=== PATIENT | female | born 1950 | race Caucasian/White ===

== ENCOUNTER 2016-10-29 15:41 | Emergency (ER) | payer MEDICARE ==
[~2016-10-29] VITALS: Ht 162.6 cm; Wt 71.2 kg
[~2016-10-29 15:41] MED LIST: ALBU18HF INH; AZIT250T89 PO; CEFD300C37 PO; CYCL-259 PO; DIPH25CA61 PO; IPRA3AMP NPPB; OXYC-229 PO; PRED20TA PO; PREG300C PO
[2016-10-29 16:18] VITALS: BP 98/63
== END 2016-10-29 17:53 | disposition home or self-care (01) ==
LOC: ED 17:47
DX: S83.411A Sprain of medial collateral ligament of right knee, initial encounter (principal); J44.9 Chronic obstructive pulmonary disease, unspecified; X58.XXXA Exposure to other specified factors, initial encounter; Y93.89 Activity, other specified; Y92.89 Other specified places as the place of occurrence of the external cause; Y99.9 Unspecified external cause status
CPT/HCPCS: 29505; 99284